=== PATIENT | female | born 1950 | race Caucasian/White ===

== ENCOUNTER 2017-04-14 09:53 | Day surgery (SDC) | payer OTHER ==
[~2017-04-14] VITALS: Ht 154.9 cm; Wt 71.4 kg
[~2017-04-14 09:53] MED LIST: HYDROCHLOROTHIA25 MG PO; IBUPROFEN800 MG PO; JANUVIA100 MG PO; LEVOTHYROXINE50 MCG PO; OMEPRAZOLE20 MG PO; POTASSIUM CHLO20 ME2 PO; PROZAC20 MG PO; PROZAC40 MG PO; VERAPAMIL HCL240 MG PO
[2017-04-14 10:26] VITALS: BP 117/65
[2017-04-14 10:40] LABS: POINT-OF-CARE METER ID UU13113694
[2017-04-14] MEDS ORDERED: REXULTI1 MG PO (10:41)
[2017-04-14 15:20] LABS: POINT-OF-CARE METER ID UU13113675; POINT-OF-CARE USER ID 515036437
[2017-04-14 16:30] VITALS: BP 136/71
[2017-04-14 18:00] VITALS: BP 133/67
== END 2017-04-14 18:00 | disposition home or self-care (01) ==
LOC: SDC 09:53
PROVIDERS: Podiatrist Foot & Ankle Surgery
DX: M20.11 Hallux valgus (acquired), right foot (principal); M20.41 Other hammer toe(s) (acquired), right foot; T84.84XA Pain due to internal orthopedic prosthetic devices, implants and grafts, initial encounter; Y83.1 Surgical operation with implant of artificial internal device as the cause of abnormal reaction of the patient, or of later complication, without mention of misadventure at the time of the procedure; E11.9 Type 2 diabetes mellitus without complications; E78.5 Hyperlipidemia, unspecified; I10 Essential (primary) hypertension; R01.1 Cardiac murmur, unspecified; E03.9 Hypothyroidism, unspecified
CPT/HCPCS: 82948; 84132; C1713; C1769; J0690; J1170; J2250; J3010; S0020

== ENCOUNTER 2017-06-23 10:57 | Inpatient (IN) | payer OTHER ==
[~2017-06-23] VITALS: Ht 154.9 cm; Wt 71.4 kg
[~2017-06-23 10:57] MED LIST changes: +REXULTI1 MG PO
[2017-06-23 11:24] LABS: EOSINOPHIL (%) 0.4 % (0-5); IMMATURE GRANULOCYTE (%) 0.5 % (0.0-0.7); INSTRUMENT ABS NEUTROPHIL CT 6.5 K/uL; LYMPHOCYTE COUNT 0.8 K/uL (1.0-2.8); MCH 27.8 PG (29.0-34.0); MCHC 34.6 G/DL (30.0-36.0); MCV 80.3 FL (83-99); MEAN PLAT.VOLUME 10.5 uM^3 (9.5-12.4); MONOCYTE (%) 5.3 % (3-12); MONOCYTE COUNT 0.4 K/uL (0-0.8); NEUTROPHIL (%) 83.9 % (45-76); NEUTROPHIL COUNT 6.5 K/uL (1.8-6.4); RBC DIS.WIDTH-CV 14.4 % (11.8-14.6); RBC DIS.WIDTH-SD 42.4 % (39-53); RED BLOOD COUNT 4.61 M/uL (3.80-5.20); WHITE BLOOD COUNT 7.7 K/uL (4.1-10.2)
[2017-06-23 11:30] LABS: PLATELET COUNT 211 K/uL (156-360)
[2017-06-23 11:33] LABS: CHLORIDE 91 mEq/L (99-109); POTASSIUM 2.6 mEq/L (3.7-5.4); SODIUM 132 mEq/L (136-147)
[2017-06-23 11:34] LABS: GLUCOSE 200 mg/dL (70-99)
[2017-06-23 11:36] LABS: ANION GAP 14 MEQ/L (2-14)
[2017-06-23 11:38] LABS: GFR ESTIMATE (CALCULATED) 59 mL/min/
[2017-06-23 11:39] LABS: UREA NITROGEN (BUN) 17 mg/dL (9-23)
[2017-06-23 12:15] LABS: ADD MIUA? YES; BILIRUBIN SMALL; BLOOD NEGATIVE; COLOR AMBER ((YELLOW)); GLUCOSE (STRIP) NEGATIVE; KETONES 5; LEUKOCYTES TRACE; NITRITE NEGATIVE; PROTEIN (STRIP) 100; SPECIFIC GRAVITY 1.034 (1.000-1.030)
[2017-06-23 12:21] LABS: BACTERIA NONE SEEN /HPF; EPITHELIAL CELLS 2+ /HPF; MUCUS 1+ /LPF; RED BLOOD CELLS 0-5 /HPF (0-5)
[2017-06-23] MEDS ORDERED: BACTRIM,SEPT1 TABLET PO (13:55)
[2017-06-23 15:25] LABS: CHLORIDE 98 mEq/L (99-109); POTASSIUM 2.9 mEq/L (3.7-5.4); SODIUM 135 mEq/L (136-147)
[2017-06-23 15:26] LABS: GLUCOSE 114 mg/dL (70-99)
[2017-06-23 15:28] LABS: ANION GAP 12 MEQ/L (2-14)
[2017-06-23 15:30] LABS: GFR ESTIMATE (CALCULATED) > 59 mL/min/
[2017-06-23 15:31] LABS: UREA NITROGEN (BUN) 16 mg/dL (9-23)
[2017-06-23 19:42] VITALS: BP 132/61
[2017-06-23 21:09] LABS: ANION GAP 12 MEQ/L (2-14); CHLORIDE 96 MEQ/L (99-109); GFR ESTIMATE (CALCULATED) > 59 mL/min/; GLUCOSE 114 mg/dL (70-99); MAGNESIUM 1.2 mg/dl (1.3-2.7); POTASSIUM 2.9 MEQ/L (3.7-5.4); SAMPLE HEMOLYSIS CHECK 0; SAMPLE ICTERIC CHECK 0; SAMPLE LIPEMIA CHECK 0; SODIUM 132 MEQ/L (136-147); UREA NITROGEN (BUN) 15 mg/dL (9-23)
[2017-06-23 21:24] VITALS: BP 130/58
[2017-06-23 21:38] LABS: POINT-OF-CARE METER ID UU14162513
[2017-06-23 22:00] LABS: INFLUENZA A VIRAL ANTIGEN NEGATIVE; INFLUENZA B VIRAL ANTIGEN NEGATIVE
[2017-06-23 23:31] VITALS: BP 92/49
[2017-06-24] VITALS (8 sets, daily range): BP systolic 92–115; BP diastolic 45–68
[2017-06-24 05:50] LABS: ANION GAP 8 MEQ/L (2-14); CHLORIDE 99 MEQ/L (99-109); GFR ESTIMATE (CALCULATED) > 59 mL/min/; GLUCOSE 113 mg/dL (70-99); POTASSIUM 3.4 MEQ/L (3.7-5.4); SAMPLE HEMOLYSIS CHECK 0; SAMPLE ICTERIC CHECK 0; SAMPLE LIPEMIA CHECK 0; SODIUM 132 MEQ/L (136-147); UREA NITROGEN (BUN) 13 mg/dL (9-23)
[2017-06-24 08:46] LABS: MAGNESIUM 1.3 mg/dl (1.3-2.7)
[2017-06-24] MEDS ORDERED: ONDANSETRON HCL4 MG PO (10:35)
[2017-06-24] MEDS ORDERED: TRAZODONE HCL50 MG PO (10:35)
[2017-06-24] MEDS ORDERED: LEVOFLOXACIN500 MG PO (10:36)
[2017-06-24] MEDS ORDERED: MULTIVITAMIN1 EAC2 PO (10:36)
[2017-06-24 12:47] LABS: POINT-OF-CARE METER ID UU13113831
[2017-06-24 17:35] LABS: POINT-OF-CARE METER ID UU13113700
[2017-06-25 04:35] VITALS: BP 111/53
[2017-06-25 05:35] LABS: EOSINOPHIL (%) 2.5 % (0-5); EOSINOPHIL COUNT 0.2 K/uL (0-0.3); HEMATOCRIT 31.2 % (36.0-46.0); IMMATURE GRANULOCYTE (%) 0.7 % (0.0-0.7); IMMATURE GRANULOCYTE COUNT 0.1 K/uL; INSTRUMENT ABS NEUTROPHIL CT 5.4 K/uL; LYMPHOCYTE COUNT 0.7 K/uL (1.0-2.8); MCHC 35.3 G/DL (30.0-36.0); MCV 82.3 FL (83-99); MEAN PLAT.VOLUME 10.5 uM^3 (9.5-12.4); MONOCYTE COUNT 0.6 K/uL (0-0.8); NEUTROPHIL (%) 78.3 % (45-76); NEUTROPHIL COUNT 5.4 K/uL (1.8-6.4); PLATELET COUNT 198 K/uL (156-360); RBC DIS.WIDTH-CV 15.1 % (11.8-14.6); RBC DIS.WIDTH-SD 45.6 % (39-53); RED BLOOD COUNT 3.79 M/uL (3.80-5.20); WHITE BLOOD COUNT 6.9 K/uL (4.1-10.2)
[2017-06-25 06:24] LABS: ANION GAP 5 MEQ/L (2-14); CHLORIDE 99 MEQ/L (99-109); GFR ESTIMATE (CALCULATED) > 59 mL/min/; GLUCOSE 158 mg/dL (70-99); POTASSIUM 3.7 MEQ/L (3.7-5.4); SAMPLE HEMOLYSIS CHECK 0; SAMPLE ICTERIC CHECK 0; SAMPLE LIPEMIA CHECK 0; SODIUM 133 MEQ/L (136-147); UREA NITROGEN (BUN) 10 mg/dL (9-23)
[2017-06-25 06:25] LABS: MAGNESIUM 1.5 mg/dl (1.3-2.7)
[2017-06-25 09:41] VITALS: BP 100/52
[2017-06-25] MEDS ORDERED: CALAN SR,COVER180 MG PO (11:29)
[2017-06-25] MEDS ORDERED: BACTRIM,SEPT1 TABLET PO (11:29)
[2017-06-25] MEDS ORDERED: K-DUR20 MEQ PO (11:29)
[2017-06-25] MEDS ORDERED: ZOFRAN4 MG PO (11:29)
[2017-06-25 12:07] VITALS: BP 96/47
[2017-06-25 14:52] VITALS: BP 104/52; BP 105/57; BP 98/54
[2017-06-25 17:33] LABS: POINT-OF-CARE METER ID UU13113831
[2017-06-25 19:47] VITALS: BP 128/58
[2017-06-25 21:34] LABS: POINT-OF-CARE METER ID UU13113831
[2017-06-26 01:06] VITALS: BP 120/58
[2017-06-26 04:33] VITALS: BP 122/65
[2017-06-26 05:32] LABS: HEMATOCRIT 29.2 % (36.0-46.0); MCH 29.8 PG (29.0-34.0); MEAN PLAT.VOLUME 10.1 uM^3 (9.5-12.4); PLATELET COUNT 209 K/uL (156-360); RBC DIS.WIDTH-CV 15.1 % (11.8-14.6); RBC DIS.WIDTH-SD 46.2 % (39-53); RED BLOOD COUNT 3.52 M/uL (3.80-5.20); WHITE BLOOD COUNT 5.2 K/uL (4.1-10.2)
[2017-06-26 05:55] LABS: ANION GAP 6 MEQ/L (2-14); CHLORIDE 100 MEQ/L (99-109); GFR ESTIMATE (CALCULATED) > 59 mL/min/; GLUCOSE 180 mg/dL (70-99); POTASSIUM 3.8 MEQ/L (3.7-5.4); SAMPLE HEMOLYSIS CHECK 0; SAMPLE ICTERIC CHECK 0; SAMPLE LIPEMIA CHECK 0; SODIUM 136 MEQ/L (136-147); UREA NITROGEN (BUN) 9 mg/dL (9-23)
[2017-06-26 08:00] VITALS: BP 132/68
[2017-06-26 08:06] LABS: POINT-OF-CARE METER ID UU14162513
[2017-06-29] MEDS ORDERED: PROZAC40 MG PO (20:49)
== END 2017-06-26 12:58 | disposition home or self-care (01) | DRG 641 ==
LOC: EME 10:57 → EDOF 17:56 → 5WEST 17:56 → EDOF 17:56 → ENRESERV 18:02 → 5WEST 19:18 → ENRESERV 06-24 15:22 → CANRESERV 06-24 22:57 → 5WEST 06-26 12:58
PROVIDERS: Emergency Medicine; Internal Medicine; Nurse Practitioner Adult Health; Nurse Practitioner Family; Physician Assistant Medical
PROC: 5A09357 Assistance with Respiratory Ventilation, Less than 24 Consecutive Hours, Continuous Positive Airway Pressure (ICD-10-PCS; principal; 2017-06-24)
DX: E87.6 Hypokalemia (principal); E86.0 Dehydration; R11.12 Projectile vomiting; E83.42 Hypomagnesemia; N39.0 Urinary tract infection, site not specified; B96.1 Klebsiella pneumoniae [K. pneumoniae] as the cause of diseases classified elsewhere; I10 Essential (primary) hypertension; E11.9 Type 2 diabetes mellitus without complications; E78.2 Mixed hyperlipidemia; K21.9 Gastro-esophageal reflux disease without esophagitis; G47.33 Obstructive sleep apnea (adult) (pediatric); E03.9 Hypothyroidism, unspecified; F32.9 Major depressive disorder, single episode, unspecified; E66.9 Obesity, unspecified; Z68.29 Body mass index [BMI] 29.0-29.9, adult; Z23 Encounter for immunization; Z79.84 Long term (current) use of oral hypoglycemic drugs; Z86.718 Personal history of other venous thrombosis and embolism
CPT/HCPCS: 36415; 74177; 80048; 80048 91; 80053; 81003; 82948; 83735; 84100; 85025; 85027; 87040; 87086 GA; 87502; 93005; 94660; 99281; 99285; G0378; J0696; J1644; J1815; J2405; J3475; J3480; J7030; J7050